=== PATIENT | female | born 1990 | race Two or more races ===

== ENCOUNTER 2021-10-17 10:20 | Day surgery (SDC) | payer OTHER ==
[~2021-10-17 10:20] MED LIST: ZYRTEC10 MG PO
== END 2021-10-17 20:30 | disposition home or self-care (01) ==
LOC: CIR.AMB 10:20
PROVIDERS: ATTEND Obstetrics & Gynecology
DX: O02.1 Missed abortion (principal); Z20.822 Contact with and (suspected) exposure to COVID-19

== ENCOUNTER 2022-09-30 16:59 | Outpatient (CLI) | payer OTHER | END 2022-09-30 18:03 | disposition home or self-care (01) | LOC: NST 16:59 | PROVIDERS: ATTEND Obstetrics & Gynecology Maternal & Fetal Medicine | DX: Z34.83 Encounter for supervision of other normal pregnancy, third trimester (principal) ==

== ENCOUNTER 2022-11-04 12:45 | Inpatient (IN) | payer OTHER ==
[~2022-11-04] VITALS: Ht 157.5 cm; Wt 3.2 kg
[2022-11-07] MEDS ORDERED: COMPLETE NATAL1 EACH PO (06:54)
== END 2022-11-10 13:22 | disposition home or self-care (01) | DRG 788 ==
LOC: O/R 11-07 06:19 → OB/GYN 11-07 06:19
PROVIDERS: ADMIT Obstetrics & Gynecology; ATTEND Obstetrics & Gynecology
PROC: 4A1HXCZ Monitoring of Products of Conception, Cardiac Rate, External Approach (ICD-10-PCS; 2022-11-07)
PROC: 10D00Z1 Extraction of Products of Conception, Low, Open Approach (ICD-10-PCS; principal; 2022-11-07 21:00)
DX: O32.1XX0 Maternal care for breech presentation, not applicable or unspecified (principal); O99.824 Streptococcus B carrier state complicating childbirth; Z3A.39 39 weeks gestation of pregnancy; Z37.0 Single live birth; Z20.822 Contact with and (suspected) exposure to COVID-19